=== PATIENT | male | born 1945 | race Caucasian/White ===

== ENCOUNTER → 2020-06-14 14:59 | Outpatient (CLI) | payer MEDICARE, SELFPAY ==
--- NOTE | ~2020-06-14 | XR_ITS ---
XR shoulder RT min 2V 06/14/2020 15:09 Indication: Right shoulder pain Procedure: 4 views right shoulder Comparison: No prior studies for comparison. Findings: There is osteoarthritis of the right glenohumeral joint with near complete loss of joint sp kayley and marginal osteophytosis. No fracture or traumatic malalignment. No significant soft tissue abn ormality. Impression: 1: Advanced osteoarthritis of the right glenohumeral joint. Reviewed, dictated and finalized at location A. Impression: 1: Advanced osteoarthritis of the right glenohumeral joint.
== END ==
PROVIDERS: PCP Family Medicine; Visit Provider Family Medicine
DX: M19.011 Primary osteoarthritis, right shoulder (principal)
CPT/HCPCS: 73030

== ENCOUNTER → 2021-05-27 00:53 | Outpatient (CLI) | payer MEDICARE, SELFPAY ==
[2021-05-27 21:00] LABS: SARS-CoV-2 RNA PCR Negative
== END ==
PROVIDERS: PCP Family Medicine; Visit Provider Family Medicine
DX: Z20.828 Contact with and (suspected) exposure to other viral communicable diseases (principal)
CPT/HCPCS: C9803; U0003; U0005

== ENCOUNTER → 2022-06-19 13:27 | Outpatient (CLI) | payer MEDICARE, SELFPAY ==
--- NOTE | ~2022-06-19 | XR_ITS ---
XR knee RT min 4V 06/19/2022 13:41 Indication: Right knee pain Procedure: 4 views right knee Comparison: No prior studies for comparison. Findings: There is tricompartment osteoarthritis, most advanced in the medial compartment. No signifi cant joint effusion. No fracture or traumatic alignment. Impression: 1: Tricompartment osteoarthritis most advanced in the medial joint space. Reviewed, dictated and finalized at location B. Impression: 1: Tricompartment osteoarthritis most advanced in the medial joint space.
== END ==
PROVIDERS: PCP Family Medicine; Visit Provider Family Medicine
DX: M17.11 Unilateral primary osteoarthritis, right knee (principal)
CPT/HCPCS: 73564

== ENCOUNTER 2024-03-09 10:46 | Outpatient (CLI) | payer MEDICARE, SELFPAY ==
--- NOTE | ~2024-03-09 | MMUS_ITS ---
EXAMINATION: MM diagnostic kayla RT w bernardino, US breast RT limited HISTORY: Palpable right breast abnormality. Pain in the nipple for 2 months. TECHNIQUE: Additional 3-D tomosynthesis images of the breasts were performed and synthetic 2-D images were generated. CAD analysis was submitted and interpreted. High resolution Limited right breast ult rasound was performed. COMPARISON: None BREAST PARENCHYMAL COMPOSITION: Not dense: There are scattered areas of fibroglandular density. FINDINGS: MAMMOGRAPHIC FINDINGS: There is bilateral asymmetric gynecomastia, right greater than left. No suspicious masses, calcificat ions or architectural distortion to suggest malignancy. ULTRASOUND: Limited right breast ultrasound: At 10:00, 5 cm from the nipple there is an oval parallel oriented hy perechoic mass with horizontally oriented striations measuring 2.7 x 0.9 x 1.5 cm, most likely benign lipoma. No posterior features or internal vascularity. Gynecomastia is noted in the subareolar locat ion. IMPRESSION: 1. Probable benign lipoma at 10:00, 5 cm from the nipple corresponding to the area of palpable concer n. 2. Recommend 6 month follow-up Limited right breast ultrasound. Recommend follow clinical management for gynecomastia. BI-RADS category 3, probably benign findings. Reviewed, dictated and finalized at location B. IMPRESSION: 1. Probable benign lipoma at 10:00, 5 cm from the nipple corresponding to the a boris of palpable concern. 2. Recommend 6 month follow-up Limited right breast ultrasound. Recommend follo w clinical management for gynecomastia. BI-RADS category 3, probably benign findings.
== END 2024-03-09 10:47 ==
PROVIDERS: PCP Family Medicine; Visit Provider Family Medicine
DX: N63.41 Unspecified lump in right breast, subareolar (principal); R92.8 Other abnormal and inconclusive findings on diagnostic imaging of breast
CPT/HCPCS: 76642; 77061; 77065; G0279

== ENCOUNTER 2025-01-13 13:17 | Outpatient (CLI) | payer MEDICARE, SELFPAY ==
--- NOTE | 2025-01-13 14:45 | NEURO_ITS ---
Impression: # Complains of right hand weakness. Non-diabetic. ? # Right ulnar neuropathy across the elbow. ? # Mild right Carpal Tunnel Syndrome. ? # Needle/EMG exam mildly abnormal. Nerve Conduction Studies Anti Sensory Summary Table ?Stim Site NR Peak (ms) P-T Amp (?V) Site1 Site2 Delta-P (ms) Dist (cm) Sameer (m/s) Right Median Anti Sensory (2-3nd Digit) Wrist ? 3.0 31.0 Wrist 2-3nd Digit 3.0 14.0 47 Wrist ? 3.0 49.1 Wrist 2-3nd Digit 3.0 14.0 47 Right Radial Anti Sensory (Base 1st Digit) Wrist ? 2.3 24.1 Wrist Base 1st Digit 2.3 0.0 Right Ulnar Anti Sensory (5th Digit) Wrist ? 3.1 26.8 Wrist 5th Digit 3.1 14.0 45 Motor Summary Table ?Stim Site NR Onset (ms) O-P Amp (mV) Site1 Site2 Delta-0 (ms) Dist (cm) Sameer (m/s) Right Median Motor (Abd Poll Brev) Wrist ? 4.3 2.3 Elbow Wrist 5.7 30.0 53 Elbow ? 10.0 3.2 Right Ulnar Motor (Abd Dig Minimi) Wrist ? 2.5 3.2 A Elbow Wrist 6.4 30.0 47 A Elbow ? 8.9 1.7 B Elbow Wrist 3.8 22.0 58 B Elbow ? 6.3 1.7 F Wave Studies ?NR F-Lat (ms) L-R F-Lat (ms) Right Median (Mrkrs) (Abd Poll Brev) ? 31.14 Right Ulnar (Mrkrs) (Abd Dig Min) ? 31.42 EMG ?Side Muscle Nerve Root Ins Act Fibs Amp Dur Recrt Comment Right 1stDorInt Ulnar C8-T1 Nml Nml Nml >12ms +3 Right Ext Indicis Radial (Post Int) C7-8 Nml Nml Nml Nml Nml Right Ext Digitorum Radial (Post Int) C7-8 Nml Nml Nml Nml Nml Right BrachioRad Radial C5-6 Nml Nml Nml Nml Nml Right PronatorTeres Median C6-7 Nml Nml Nml Nml Nml Right Abd Poll Brev Median C8-T1 Nml Nml Nml Nml Nml Right ABD Dig Min Ulnar C8-T1 Nml Nml Nml >12ms +3 Right FlexPolLong Median (Ant Int) C7-8 Nml Nml Nml Nml Nml Right Abd Poll Long Radial (Post Int) C7-8 Nml Nml Nml Nml Nml MTDD
--- OUTSIDE RECORDS SUMMARY | 2025-01-13 14:55 | XMS_ITS | Encounter Summary ---
Author Organization [facility] Healthcare Address [address] [place] [address] Care Team Providers Care Rotor Balancer Name Role Phone Troy Collazo MD Primary Care Provider [phone] Yadi Erickson DO Primary Care Provider [phone] Rnona De Guzman Unavailable [phone] Encounter Details Date Type Department Care Team (Late st Contact Info) Description 05/02/2020 Telephone [facility] Advanced Medicine Radiation Oncology [address] [facility] [place] [address] Ruth Barton MA Social History Tobacco Use Types Packs/Day Years Used Date Smoking Tobacco: Former Sex and Gender Information Value Date Recorded Sex Assigned at Not on file Legal 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 Gender Identity Not on file Sexual Orientation Not on file documented as of this encounter Plan of Treatment Not on file documented as of this encounter Visit Diagnoses Not on filedocumented in this encounter Care Teams Rotor Balancer Relationship Specialty Start Date End Date Troy Collazo MD [address] [place] [address] PCP - General 01/30/17 10/30/22 Yadi Erickson DO [address] [place] [address] PCP - General Family Medicine 10/31/22 Ronna De Guzman PA [address] [facility] [address] [place] [address] Physician Quality Assurance Project Manager Orthopedic Surgery 10/01/23 documented as of this encounter
--- OUTSIDE RECORDS SUMMARY | 2025-01-13 14:55 | XMS_ITS | Clinical Summary ---
Author Organization [facility] Address [address] [place] [address] Care Team Providers Care Ordnance Artificer Helper Name Role Phone ToykarinaYadi anguiano Primary Care Provider [phone] Ronna De Guzman Unavailable Allergies No known active allergies Medications amLODIPine (NORVASC) 10 mg tablet daily Active atorvastatin (LIPITOR) 10 mg tablet Take 1 tablet (10 mg total) by mouth daily 9 Active vniywovw-ais-KH -lycopen-lutein (CENTRUM SILVER) 0.4-300-250 mg-mcg-mcg tablet Take 1 tablet by mouth daily Active hyalur ac-chond sul-colg II-AA (HYALURONIC ACID, CHOND-COLLGN,) 40-80-400 mg capsule Take 1 capsule by mouth daily Active levothyroxine (SYNTHROID) 50 mcg tablet Take 1 tablet (50 mcg total) by mouth daily 3 Active coenzyme Q10 200 mg capsule Take 1 capsule (200 mg total) by mouth daily Active naproxen sodium 220 mg capsuleIndicati ons:Pain Take 220 mg by mouth 2 (two) times a day as needed Active acetaminophen-a spirin-caffeine (EXCEDRIN MIGRAINE) 250-250-65 mg per tablet Take 1 tablet by mouth every 6 (six) hours as needed for headaches Active ascorbic acid (VITAMIN C) 500 mg tablet,chewable Take 1 tablet/chew tab (500 mg total) by mouth 2 (two) times a day 60 tablet/chew tab 4 Active aspirin 81 mg enteric coated tabletIndicatio ns:prevention of thrombosis Take 1 tablet (81 mg total) by mouth 2 (two) times a day for 14 days 28 tablet 4 Active cholecalciferol (VITAMIN D-3) 2000 unit capsule Take 1 capsule (2,000 Units total) by mouth daily 30 capsule 4 Active Active Problems Problem Noted Date Diagnosed Date Rotator cuff arthropathy of right shoulder 09/24 Rotator cuff arthropathy, right 09/20/2023 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 0 01/06/2015 Hyperlipidemia 12/16/2014 Hypertension 12/16/2014 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 Surgical History Surgery Date Site/Laterality Comments CATARACT EXTRACTION Cataract Surgery - (Added by TW Conv) MT FASCIOTOMY PALMAR PERCUTANEOUS Palmar Fasciotomy For Dupuytren's Contracture - (Added by TW Conv) MT LITHOTRIPSY XTRCORP SHOCK WAVE Renal Lithotripsy - (Added by Conv) Medical History Medical History Date Comments Hypertension HLD (hyperlipidemia) Hypothyroidism Family History Medical History Relation Name Comments Diabetes Father Family history of diabetes mellitus - (Added by TW Conv) Ovarian cancer Mother Ovarian cance r - (Added by TW Conv) Ovarian cancer Other Ovarian cance r - Relation: Grandmother (Added by TW Conv) Relation Name Status Comments Father Mother Other Social History Tobacco Use Types Packs/Day Years Used Date Smoking Tobacco: Former Smokeless Tobacco: Never Tobacco Cessation:Counseling Given: Not Answered AUDIT-C Answer Date Recorded Q1: How often do you have a drink containing alc ohol? 2-3 times a week 10/01/2023 Q2: How many drinks containi ng alcohol do you have on a typical day when you are drinking? 1 or 2 10/01/2023 Q3: How often do you have si x or more drinks on one occasion? Never 10/01/2023 Personal Safety Answer Date Recorded Have you ever been in or are you currently in a harmful physical or emotional relationship or is someone making you feel afraid or unsafe? 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 Gender Identity Not on file Sexual Orientation Not on file Obstetrics History Last Filed Vital Signs Vital Sign Reading Time Taken Comments Blood Pressure 121/79 11/19/2023 8:08 AM LIQUOR GALLERY OPERATOR Pulse 60 11/19/2023 8:08 AM LIQUOR GALLERY OPERATOR Temperature 36.4 C (97.5 F) 10/01/2023 2:14 PM LIQUOR GALLERY OPERATOR Respiratory Rate 18 10/01/2023 2:14 PM LIQUOR GALLERY OPERATOR Oxygen Saturation 97% 10/01/2023 2:14 PM LIQUOR GALLERY OPERATOR Inhaled Oxygen Concentration - - Weight 73 kg (160 lb 14.4 oz) 11/19/2023 8:08 AM LIQUOR GALLERY OPERATOR Height 172.7 cm (5' 8 ) 11/19/2023 8:08 AM LIQUOR GALLERY OPERATOR Body Mass Index 24.46 11/19/2023 8:08 AM LIQUOR GALLERY OPERATOR Plan of Treatment Health Maintenance Due Date Last Done Comments Depression Screening 1944 DTaP/Tdap/Td Vaccine (1 - Tdap) 1955 Hepatitis B Screening 1962 Pneumococcal vaccine 65+ (1 of 1 - PCV) 1994 Zoster Vaccine (1 of 2) 1994 Abdominal Aortic Aneurysm (AAA) Screen 2009 Well Visit 65+ 2009 Fall Risk Assessment 09/20/2024 09/20/2023 Influenza Vaccine (Season Ended) 2025 09/18/20 18 Medical Devices Implanted Type Area Drilling Superintendent Device Identifier Shelf Expiration Date Model / Serial / Lot [employer] Component Glenoid Modular Post Reverse 20mm Ar-9582-20 - [id number] Implanted:Qty: 1 on 10/01/2023 by Omkar South MD at [facility] Right: Shoulder [employer] [id number] 01/21/2028 AR-9582-2 0 / / [id number] [employer] Baseplate 24mm 20 Deg Full Augment [id number] - [id number] Implanted:Qty: 1 on 10/01/2023 by Omkar South MD at [facility] Right: Shoulder [employer] [id number] 12/21/2026 AR-9580-2 420S / / [id number] [employer] Univers Revers Biosync 39mm 24mm Glenosphere Taper Baseplate [id number] - [id number] Implanted:Qty: 1 on 10/01/2023 by Omkar South MD at [facility] Right: Shoulder [employer] [id number] 07/23/2027 AR-9564-2 439 / / [id number] [employer] 5.5mm 36mm Lock Peripheral Screw Bone Sterile Ar-9563-36 - [id number] Implanted:Qty: 1 on 10/01/2023 by Omkar South MD at [facility] Right: Shoulder [employer] [id number] 01/21/2028 AR-9563-3 6 / / [id number] [employer] 5.5mm 28mm Lock Modular Glenoid Screw Bone Ar-9563-28 - [id number] Implanted:Qty: 1 on 10/01/2023 by Omkar South MD at [facility] Right: Shoulder [employer] [id number] 02/21/2028 AR-9563-2 8 / / [id number] [employer] Univers Revers Shoulder 10 Stem Humeral Sterile Ar-9501-10s - [id number] Implanted:Qty: 1 on 10/01/2023 by Omkar South MD at [facility] Right: Shoulder [employer] [id number] 11/21/2027 AR-9501-1 0S / / [id number] [employer] Univers Revers 39mm Suture Shoulder Right +2 Cup Humeral [id number] - [id number] Implanted:Qty: 1 on 10/01/2023 by Omkar South MD at [facility] Right: Shoulder [employer] [id number] 12/22/2027 AR-9502F- 39RCPC / / [id number] [employer] Univers Revers 39mm Shoulder +6mm Medium Insert Humeral Sterile Ar-9503m-06 - [id number] Implanted:Qty: 1 on 10/01/2023 by Omkar South MD at [facility] Right: Shoulder [employer] [id number] 09/22/2027 AR-9503M- 06 / / [id number] Insurance [facility] HMO REF [place] [id number] MEDICARE ADVANTAGE [place] [id number] MEDICARE MEDICARE RESEARCH [facility] MEDICARE ADVANTAGE [facility] MEDICARE ADVANTAGE Care Teams Ordnance Artificer Helper Relationship Specialty Start Date End Date Yadi Erickson DO PCP - General Family Medicine 10/31/22 Ronna De Guzman PA [address] [place] [address] [place] [address] Physician Farm Manager Orthopedic Surgery 10/01/23
--- OUTSIDE RECORDS SUMMARY | 2025-01-13 14:55 | XMS_ITS ---
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 Past Treatment and Therapy Plans No past plan information found. Lifetime Dose Tracking * Chemical Lifetime Dose Automatic Entry Manual Entr y DLP 1,618 mGycm 1,618 mGycm 0 mGycm
--- OUTSIDE RECORDS SUMMARY | 2025-01-13 14:55 | XMS_ITS | Continuity of Care Document ---
Author Organization [facility] Address [address] [place] [address] [address] [place] [address] Phone Care Team Providers Care Blade Boner Name Role Phone Chung Sims Unavailable Unavailable Procedures Procedure Date Eye Exam & Treatment Refraction Eye Exam & Treatment Refraction Advance Directives Directive Yes / No Effective Date File Name No Information Encounters Encounter Description Practice Location Reason(s) For Visit Diagnoses Date Provider Providers Copied on Encounter [facility], [address] [place] [address] [address], [place], [place], [id number], tel:[phone] [facility] No Information 0-[address] Bethany Wilkes. [address], [place], [place], [facility], . tel:[phone] [facility], [address] [place] [address] [address], [place], [place], [id number], tel:[phone] [facility] No Information 6[address] Bethany Wilkes. [address], [place], [place], [facility], . tel:[phone] Family History Family Member Type Diagnosis Age At Onset No Information Payers Payer name Insurance type Covered democrat ID Authorjamesa miriam(s) [facility] CI [id number] Social History Type Description Quantity Date Captured Comments Sex Male Smoking Status No Information Chief Complaint And Reason For Visit No Information Reason For Referral Reason For Referral No Information History Of Present Illness Encounter Date Complaint History Of Prese nt Illness No Information Functional Status Date Functional Assessmen t No Information Instructions Date Instruction Additional Infor mation No Information Assessments Type Assessment Date No Information Patient Care Teams Name Effective Dates (start - stop) Status Members No Information
--- OUTSIDE RECORDS SUMMARY | 2025-01-13 14:55 | XMS_ITS | Referral Summary ---
Author Organization 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 Social History Tobacco Use Types Packs/Day Years [...] on file Legal Sex Male 8:34 PM INSURANCE CLAIMS CLERK Gender Identity Not on file Sexual Orientation Not on file Last Filed Vital Signs Vital Sign Reading Time Taken Comments Blood Pressure 121/79 11/19/2023 8:08 AM INSURANCE CLAIMS CLERK Pulse 60 11/19/2023 8:08 AM INSURANCE CLAIMS CLERK Temperature 36.4 C (97.5 F) 10/01/2023 2:14 PM INSURANCE CLAIMS CLERK Respiratory Rate 18 10/01/2023 2:14 PM INSURANCE CLAIMS CLERK Oxygen Saturation 97% 10/01/2023 2:14 PM INSURANCE CLAIMS CLERK Inhaled Oxygen Concentration - - Weight 73 kg (160 lb 14.4 oz) 11/19/2023 8:08 AM INSURANCE CLAIMS CLERK Height 172.7 cm (5' 8 ) 11/19/2023 8:08 AM INSURANCE CLAIMS CLERK Body Mass Index 24.46 11/19/2023 8:08 AM INSURANCE CLAIMS CLERK Plan of Treatment Not on file Medical Devices Implanted Type Area Plastic Roller Device Identifier Shelf Expiration Date Model / Serial / Lot [employer] Component Glenoid Modular Post Reverse 20mm Ar-9582-20 - [id number] Implanted:Qty: 1 on 10/01/2023 by Omkar South MD at [facility] Right: Shoulder [employer] [id number] 01/21/2028 AR-9582-2 0 / / [id number] [employer] Baseplate 24mm 20 Deg Full Augment [id number] - [id number] Implanted:Qty: 1 on 10/01/2023 by Omkar South MD at [facility] Right: Shoulder [employer] [id number] 12/21/2026 AR-9580-2 420S / / [id number] [employer] Univers Revers Biosync 39mm 24mm Glenosphere Taper Baseplate [id number] - [id number] Implanted:Qty: 1 on 10/01/2023 by Omkar South MD at [facility] Right: Shoulder [employer] [id number] 07/23/2027 AR-9564-2 439 / / [id number] [employer] 5.5mm 36mm Lock Peripheral Screw Bone Sterile Ar-9563-36 - [id number] Implanted:Qty: 1 on 10/01/2023 by Omkar South MD at [facility] Right: Shoulder [employer] [id number] 01/21/2028 AR-9563-3 6 / / [id number] [employer] 5.5mm 28mm Lock Modular Glenoid Screw Bone Ar-9563-28 - [id number] Implanted:Qty: 1 on 10/01/2023 by Omkar South MD at [facility] Right: Shoulder [employer] [id number] 02/21/2028 AR-9563-2 8 / / [id number] [employer] Univers Revers Shoulder 10 Stem Humeral Sterile Ar-9501-10s - [id number] Implanted:Qty: 1 on 10/01/2023 by Omkar South MD at [facility] Right: Shoulder [employer] [id number] 11/21/2027 AR-9501-1 0S / / [id number] [employer] Univers Revers 39mm Suture Shoulder Right +2 Cup Humeral [id number] - [id number] Implanted:Qty: 1 on 10/01/2023 by Omkar South MD at [facility] Right: Shoulder [employer] [id number] 12/22/2027 AR-9502F- 39RCPC / / [id number] [employer] Univers Revers 39mm Shoulder +6mm Medium Insert Humeral Sterile Ar-9503m-06 - [id number] Implanted:Qty: 1 on 10/01/2023 by Omkar South MD at [facility] Right: Shoulder [employer] [id number] 09/22/2027 AR-9503M- [id number] [facility] Address: [facility] [address] [place] [address] [facility] MEDICARE ADVANTAGE [facility] Address: [address] [address] [place] [address] MEDICARE MEDICARE RESEARCH [facility] MEDICARE ADVANTAGE [facility] Address: [address] [address] [place] [address] Care Teams Marketing Proposal Coordinator Relationship Specialty Start Date End Date ToykarinaannmarieYadi DO PCP - General Family Medicine 10/31/22 Ronna De Guzman PA [address] [place] [address] [address] [address] Physician Forepart [place] Orthopedic Surgery 10/01/23
--- OUTSIDE RECORDS SUMMARY | 2025-01-13 14:56 | XMS_ITS | Encounter Summary ---
Author Organization [facility] Healthcare Address [address] [place] [address] Care Team Providers Care Plating Technician Name Role Phone Troy Collazo MD Primary Care Provider [phone] Yadi Erickson DO Primary Care Provider [phone]- [phone] Ronna De Guzman Unavailable [phone] Encounter Details Date Type Department Care Team (Late st Contact Info) Description 04/29/2020 Telephone [facility] Advanced Medicine Radiation Oncology [address] [facility] [place] [address] Ruth Barton MA Social History Tobacco Use Types Packs/Day Years Used Date Smoking Tobacco: Former Sex and Gender Information Value Date Recorded Sex Assigned at Not on file Legal Sex Male 8:34 PM SILVERWARE ETCHER Gender Identity Not on file Sexual Orientation Not on file documented as of this encounter Plan of Treatment Not on file documented as of this encounter Visit Diagnoses Not on filedocumented in this encounter Care Teams Plating Technician Relationship Specialty Start Date End Date Troy Collazo MD [address] [place] [address] PCP - General 01/30/17 10/30/22 Yadi Erickson DO [address] [place] [address] PCP - General Family Medicine 10/31/22 Ronna De Guzman PA [address] [facility] [address] [place] [address] Physician Clinical Ob Orthopedic Surgery 10/01/23 documented as of this encounter
== END 2025-01-13 13:18 | disposition home or self-care (01) ==
PROVIDERS: PCP Family Medicine; Visit Provider Nurse Practitioner
DX: G56.01 Carpal tunnel syndrome, right upper limb (principal); G56.21 Lesion of ulnar nerve, right upper limb
CPT/HCPCS: 95886; 95909